=== PATIENT | female | born 1950 | race Caucasian/White ===

== ENCOUNTER 2019-07-10 09:57 | Outpatient (CLI) | payer MEDICARE, OTHER, SELFPAY ==
--- NOTE | 2019-07-10 | MR_ITS ---
WS: [id number] MRI RIGHT SHOULDER NONCONTRAST TECHNIQUE: Sagittal T2, coronal T1, T2 and proton density imaging. Axial gradient PDE imaging. CLINICAL INFORMATION: PAIN COMPARISON: None. FINDINGS: Moderate degenerative arthritis AC joint with mild downsloping of the acromion. Slight subacromial sp urring. Narrowing of the subacromial space. Mild edema at the AC joint. Intrasubstance signal abnorma lity involving the distal supraspinatus with chronic thinning consistent with tendinopathy. Tiny intr asubstance tear distal supraspinatus. Infraspinatus is intact. Normal teres minor. Normal subscapular is. No full-thickness rotator cuff tears. Normal biceps tendon in the bicipital groove. Tendinopathy involving the intra-articular portion of t he biceps tendon. Glenoid labrum appears grossly intact. Degenerative fraying of the glenoid labrum. MR/MR shoulder RT wo con* [id number] IMPRESSION: 1. Moderate degenerative arthritis at the AC joint with edema and mild downslo ping of the acromion. 2. Tendinopathy with a tiny intrasubstance tear involving the distal supraspin atus. No full-thickness rotator cuff tears. 3. Biceps tendon is intact within the bicipital groove with tendinopathy invol ving the intra-articular portion of the biceps tendon. 4. Mild intramuscular edema involving the rotator cuff muscle bellies likely d egenerative or inflammatory.
== END 2019-07-10 09:58 | disposition home or self-care (01) ==
LOC: RADWPI 10:08
PROVIDERS: Family Provider Family Medicine; PCP Family Medicine; Visit Provider Family Medicine
DX: M75.101 Unspecified rotator cuff tear or rupture of right shoulder, not specified as traumatic (principal); M19.011 Primary osteoarthritis, right shoulder
CPT/HCPCS: 73221

== ENCOUNTER → 2025-02-15 08:36 | Outpatient (BNVA) | payer MEDICARE, OTHER, SELFPAY | PROVIDERS: Family Provider Family Medicine; PCP Family Medicine; Visit Provider Family Medicine | DX: E78.5 Hyperlipidemia, unspecified (principal); E03.9 Hypothyroidism, unspecified; Z01.89 Encounter for other specified special examinations | CPT/HCPCS: 80053; 80061; 84443; 85025 ==

== ENCOUNTER 2025-03-06 10:25 | Outpatient (CLI) | payer MEDICARE, OTHER, SELFPAY ==
--- NOTE | 2025-03-06 10:20 | MM_ITS ---
WS: [id number] BILATERAL SCREENING DIGITAL TOMOSYNTHESIS MAMMOGRAM WITH CAD HISTORY: screening COMPARISON: 03/01/2006 Bilateral CC and MLO views with tomosynthesis and synthetic mammography submitted. Computer aided detection analyzed. Breast composition: There are scattered areas of fibroglandular density. No suspicious masses, microcalcifications or architectural distortion. Benign calcifications in each breast. MM/MM scr BI tomosynthesis [id number] IMPRESSION: BI-RADS: 2 - Benign. FOLLOW UP: 1 Year Follow-up
== END 2025-03-06 10:26 | disposition home or self-care (01) ==
LOC: RAD 10:28
PROVIDERS: Family Provider Family Medicine; PCP Family Medicine; Visit Provider Family Medicine
DX: Z12.31 Encounter for screening mammogram for malignant neoplasm of breast (principal); Z00.00 Encounter for general adult medical examination without abnormal findings; R92.323 Mammographic fibroglandular density, bilateral breasts; R92.1 Mammographic calcification found on diagnostic imaging of breast
CPT/HCPCS: 77063; 77067